=== PATIENT | female | born 1930 | race Caucasian/White ===

== ENCOUNTER 2019-04-06 17:50 | Emergency (ER) | payer MEDICARE, BC ==
--- NOTE | 2019-04-06 18:28 | ER Document Report ---
ED General - General Chief Complaint: Shoulder Pain Stated Complaint: FALL/SHOULDER PAIN Time Seen by Provider: 04/06/19 18:10 Notes: 88-year-old female presents emergency department from the [facility] after falling today. Patient reportedly slipped in some coffee that had been spilled by the patient and landed on her right shoulder. She is been complaining of right shoulder pain but initially no injury was noted, when she moved into a different position they noticed a lump to her right shoulder so they brought her in here. Patient states no complaints to me. She is demented at baseline. Only blood thinner is a daily 81 mg aspirin. TRAVEL OUTSIDE OF THE [place] IN LAST 30 DAYS: No - Related Data Allergies/Adverse Reactions: No Known Allergies Allergy (Verified 05/12/15 10:17) Past Medical History - General Information source: Relative, Emergency Med Personnel, Outside Facility Records - Social History Smoking Status: Former Smoker Chew tobacco use (# tins/day): No Frequency of alcohol use: None Drug Abuse: None Family History: Reviewed & Not Pertinent Patient has suicidal ideation: No Patient has homicidal ideation: No - Past Medical History Cardiac Medical History: Reports: Hx Coronary Artery Disease, Hx Hypertension Denies: Hx Heart Attack Pulmonary Medical History: Denies: Hx Asthma, Hx Bronchitis, Hx COPD, Hx Pneumonia Neurological Medical History: Denies: Hx Cerebrovascular Accident, Hx Seizures Musculoskeletal Medical History: 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 Denies: Hx Pacemaker - Immunizations Hx Diphtheria, Pertussis, Tetanus Vaccination: Yes Hx Pneumococcal Vaccination: 05/05/11 Review of Systems - Review of Systems Constitutional: Other EENT: No symptoms reported Respiratory: No symptoms reported Musculoskeletal: See HPI Neurological/Psychological: Dementia Physical Exam - Vital signs Vitals: Temp Pulse Resp BP Pulse Ox 97.8 F 74 18 176/65 H 94 04/06/19 17:58 04/06/19 17:58 04/06/19 17:58 04/06/19 17:58 04/06/19 17:58 Interpretation: Hypertensive - Notes Notes: GENERAL: Awake, no acute distress, daughter is currently shaving patient's chin. Patient appears unbothered. Eyes are open and she smiles when I walk in the room. HEAD: Normocephalic, atraumatic EYES: Pupils equal, round and reactive to light, extraocular movements intact. ENT: Oral mucosa moist, tongue midline. NECK: Full range of motion, supple, trachea midline. LUNGS: Clear to auscultation bilaterally, no wheezes, rales or rhonchi, no respiratory distress. HEART: Regular rate and rhythm, no murmurs, gallops, rubs. ABDOMEN: Soft, nontender, nondistended, bowel sounds present in all 4 quadrants. EXTREMITIES: Moves all 4 extremities spontaneously, no gross deformity to the shoulder noted however she does have some tenderness at the AC joint on the right. Spontaneously moves her right arm. Able to squeeze my hand but does complain of pain when I rotate her shoulder internally and externally. Radial pulse on the right is 2 out of 4. No cyanosis. SKIN: Warm, Dry, normal turgor, no rashes or lesions noted. Course - Re-evaluation Re-evalutation: 04/06/19 19:38 X-ray is negative, there is no significant swelling. Patient does have some pain with moving her shoulder. Discussed with daughter that there may be a slight AC separation however this is not surgical in her age group and functional level. Daughter is agreeable with this assessment. Patient will be placed in a sling with encouragement for early mobilization. Warned of risks of frozen shoulder. Discharged back to [facility]. - Vital Signs Vital signs: Temp Pulse Resp BP Pulse Ox 97.8 F 74 18 176/65 H 94 04/06/19 17:58 04/06/19 17:58 04/06/19 17:58 04/06/19 17:58 04/06/19 17:58 Discharge - Discharge Clinical Impression: Right shoulder pain Qualifiers: Chronicity: acute Qualified Code(s): M25.511 - Pain in right shoulder Condition: Stable Disposition: HOME, SELF-CARE Additional Instructions: There is no evidence of a break today. You may have a strain of the AC joint, but this is not a surgical problem at this age. We have placed you in a sling for comfort however it is important that you move your arm through full range of motion several times a day in order to prevent frozen shoulder. You should wear it for no more than an hour 3 times a day. This will decrease the risk of frozen shoulder. You may use Advil and Tylenol for pain. Referrals: HELIO ASH PA [Primary Care Provider] - Follow up as needed
--- NOTE | 2019-04-06 18:47 | RADIOLOGY REPORT (SQ) ---
EXAM DESCRIPTION: SHOULDER RIGHT 2 OR MORE VIEWS COMPLETED DATE/TIME: 04/06/2019 6:36 pm REASON FOR STUDY: bone tenderness COMPARISON: None. NUMBER OF VIEWS: Three views right shoulder LIMITATIONS: None. FINDINGS: Osteopenia without suggestion of overt fracture or bone lesion. Regional artifacts. Even allowing for this, probable calcific tendinitis. Right lung clear. OTHER: No other significant finding. IMPRESSION: No acute radiographic abnormality suggested. As above. TECHNICAL DOCUMENTATION: JOB ID: [id number] Reading location - IP/workstation name: [email or web address]
[2019-04-06 20:11] VITALS: BP 150/63
== END 2019-04-06 22:27 | disposition home or self-care (01) ==
LOC: ER 17:50
DX: M25.511 Pain in right shoulder (principal); W01.0XXA Fall on same level from slipping, tripping and stumbling without subsequent striking against object, initial encounter; Z79.82 Long term (current) use of aspirin; Z87.891 Personal history of nicotine dependence; I25.10 Atherosclerotic heart disease of native coronary artery without angina pectoris; I10 Essential (primary) hypertension